=== PATIENT | male | born 1955 | race Caucasian/White ===

== ENCOUNTER → 2019-08-13 07:43 | Outpatient (CLI) | payer OTHER, SELFPAY ==
--- NOTE | 2019-08-13 | DI.RAD.S_ITS ---
PROCEDURE: XR EYE FOREIGN BODY LT INDICATIONS: MRI SCREEN TECHNIQUE: A single view of the orbits was acquired. COMPARISON: None. FINDINGS: Soft tissues: No metallic foreign bodies are visualized around the orbits. Bones: Bony structures appear unremarkable. Visualized sinuses appear clear. No radiopaque foreign body is seen in orbits. IMPRESSION: No radiopaque foreign body is seen in orbits. Dictated by: Mehul Lopez M.D. on 08/13/2019 at 8:27 Approved by: Mehul Lopez M.D. on 08/13/2019 at 8:28
--- NOTE | 2019-08-13 | DI.MRI.S_ITS ---
PROCEDURE: MR LUMBAR SPINE WO CON INDICATIONS: Radiculopathy, lumbar region TECHNIQUE: Noncontrast sagittal T1 spin echo and T2 fast echo, sagittal STIR, axial T1 and T2 fast spin echo through the lumbar spine. In cases with scoliosis, additional coronal T2 fast spin echo may be performed. COMPARISON: None. FINDINGS: Image quality: Excellent. Alignment and Curvature: Degenerative retrolisthesis of L4 on L5 measures 6 mm. Trace degenerative retrolisthesis of L2 on L3 and of L1 on L2. Bone Marrow: Marrow is of normal overall signal. No acute vertebral body compression fractures. Spinal Cord: Conus medullaris terminates at the T12-L1 level. Visualized cord demonstrates normal signal and size. Paraspinous Soft Tissues: No paravertebral masses. T12-L1: Mild posterior disc plus osteophyte. Facet and ligament hypertrophy. No canal stenosis. Mild bilateral foraminal stenosis. L1-L2: Severe disc height loss. Retrolisthesis of L1 on L2. Moderate diffuse disc bulge. Facet and ligament hypertrophy. Moderate canal stenosis. Moderate to severe bilateral foraminal narrowing with flattening deformity on the exiting bilateral L1 nerve roots. L2-L3: Moderate disc height loss. Trace degenerative retrolisthesis of L2 on L3. Diffuse disc bulge. Facet and ligament hypertrophy. Moderate to severe canal stenosis. Mild to moderate bilateral foraminal narrowing with mild flattening deformity on the exiting bilateral L2 nerve roots. L3-L4: Severe disc height loss. Posterior disc bulge with mild inferior disc extrusion. Facet and ligament hypertrophy. The combination results in severe canal stenosis. Moderate to severe right foraminal narrowing and moderate left foraminal narrowing with flattening deformity on the exiting bilateral L3 nerve roots. L4-L5: Severe disc height loss. Retrolisthesis of L4 on L5. Facet and ligament hypertrophy. Moderate canal stenosis. Moderate to severe bilateral foraminal narrowing with flattening deformity on the exiting bilateral L4 nerve roots. L5-S1: Diffuse disc bulge. Facet and ligament hypertrophy. Moderate canal stenosis. Mild to moderate bilateral foraminal narrowing with mild flattening deformity on the exiting bilateral L5 nerve roots. IMPRESSION: 1. Multilevel degenerative disc disease and facet arthropathy. 2. Multilevel canal stenosis is moderate at L1-L2, moderate to severe at L2-L3, severe at L3-L4, moderate at L4-L5, and moderate at L5-S1. 3. Findings at L3-L4 included inferiorly extruded disc material. 4. Multilevel foraminal narrowing as described above. Dictated by: Roshan Henderson M.D. on 08/13/2019 at 10:47 Approved by: Roshan Henderson M.D. on 08/13/2019 at 10:56
== END ==
PROVIDERS: Referring Provider Family Medicine Geriatric Medicine; Visit Provider Family Medicine Geriatric Medicine
DX: M51.16 Intervertebral disc disorders with radiculopathy, lumbar region (principal); M47.26 Other spondylosis with radiculopathy, lumbar region; M48.061 Spinal stenosis, lumbar region without neurogenic claudication; M48.07 Spinal stenosis, lumbosacral region; Z13.5 Encounter for screening for eye and ear disorders
CPT/HCPCS: 70030; 72148